=== PATIENT | male | born 1960 | race Caucasian/White ===

== ENCOUNTER 2024-03-02 14:14 | Day surgery (SDC) | payer BC, OTHER ==
[2024-03-02] MEDS: Polymyxin B/Trimethoprim 10 ML Bottle EYERT SCH (15:07)
[2024-03-02] MEDS: Brimonidine 0.2% Ophth Soln 5 ML Bottle EYERT SCH (15:10)
[2024-03-02] MEDS: Phenylephrine 2.5% Ophth Soln 2 ML Bot EYERT SCH (15:13)
[2024-03-02] MEDS: Tropicamide 1% Ophth Soln 3 ML Bottle EYERT SCH (15:16)
[2024-03-02] MEDS: Tetracaine HCl/PF 0.5% 4 ML Bottle EYEBOTH SCH (15:43)
[2024-03-02] MEDS: Lidocaine 1% PF 2 ML SDV INJECT SCH (16:12)
[2024-03-02] MEDS: Cefuroxime 10 MG/ML SYRINGE EYERT SCH (16:13)
[2024-03-02] MEDS: Pilocarpine 4% Ophth Soln 15 ML Bot EYERT SCH (16:13)
== END 2024-03-02 16:53 ==
LOC: JD.SDS 14:14
PROVIDERS: ATTEND Ophthalmology
DX: H26.9 Unspecified cataract (principal); H25.813 Combined forms of age-related cataract, bilateral; H16.103 Unspecified superficial keratitis, bilateral; H16.223 Keratoconjunctivitis sicca, not specified as Sjogren's, bilateral; E78.00 Pure hypercholesterolemia, unspecified; Z79.899 Other long term (current) drug therapy
CPT/HCPCS: 66984; A9270; J0697; J3490

== ENCOUNTER 2024-03-30 09:14 | Day surgery (SDC) | payer OTHER ==
[2024-03-30] MEDS: Polymyxin B/Trimethoprim 10 ML Bottle EYELF SCH (09:48)
[2024-03-30] MEDS: Brimonidine 0.2% Ophth Soln 5 ML Bottle EYELF SCH (09:52)
[2024-03-30] MEDS: Phenylephrine 2.5% Ophth Soln 2 ML Bot EYELF SCH (09:56)
[2024-03-30] MEDS: Tropicamide 1% Ophth Soln 3 ML Bottle EYELF SCH (10:01)
[2024-03-30] MEDS: Tetracaine HCl/PF 0.5% 4 ML Bottle EYEBOTH SCH (11:08)
[2024-03-30] MEDS: Lidocaine 1% PF 2 ML SDV INJECT SCH (11:29)
[2024-03-30] MEDS: Cefuroxime 10 MG/ML SYRINGE EYELF SCH (11:56)
[2024-03-30] MEDS: Pilocarpine 4% Ophth Soln 15 ML Bot EYELF SCH (11:56)
== END 2024-03-30 12:05 | disposition home or self-care (01) ==
LOC: JD.SDS 09:14
PROVIDERS: ATTEND Ophthalmology
DX: H25.812 Combined forms of age-related cataract, left eye (principal); H52.31 Anisometropia; H11.823 Conjunctivochalasis, bilateral; H16.103 Unspecified superficial keratitis, bilateral; H16.223 Keratoconjunctivitis sicca, not specified as Sjogren's, bilateral; E78.2 Mixed hyperlipidemia; Z79.899 Other long term (current) drug therapy
CPT/HCPCS: 66984; A9270; J0697; J3490